=== PATIENT | male | born 1975 | race Two or more races ===

== ENCOUNTER 2021-07-28 13:32 | Emergency (ER) | payer OTHER ==
[~2021-07-28] VITALS: Ht 185.4 cm; Wt 76.7 kg
[2021-07-28] MEDS ORDERED: NORFLEX100MG PO (20:53)
== END 2021-07-28 21:01 | disposition home or self-care (01) ==
LOC: ER 13:32
DX: R20.2 Paresthesia of skin (principal); R22.1 Localized swelling, mass and lump, neck